=== PATIENT | female | born 1985 | race Hispanic/Latino ===

== ENCOUNTER 2020-10-30 09:05 | Outpatient (CLI) | payer BC | END 2020-10-30 09:06 | disposition home or self-care (01) | LOC: CSHCT 09:05 | PROVIDERS: ATTEND Internal Medicine Gastroenterology | DX: R10.9 Unspecified abdominal pain (principal); K76.9 Liver disease, unspecified | CPT/HCPCS: 74177 ==

== ENCOUNTER 2020-12-04 08:29 | Outpatient (CLI) | payer BC | END 2020-12-04 08:30 | disposition home or self-care (01) | LOC: CSHMRI 08:29 | PROVIDERS: ATTEND Internal Medicine Gastroenterology | DX: R93.3 Abnormal findings on diagnostic imaging of other parts of digestive tract (principal); D18.03 Hemangioma of intra-abdominal structures | CPT/HCPCS: 74183 ==